=== PATIENT | female | born 1935 | race Caucasian/White ===

== ENCOUNTER 2021-08-01 06:41 | Inpatient (IN) | payer MEDICARE, MEDICAID ==
[~2021-08-01] VITALS: Ht 152.4 cm; Wt 45.8 kg
[~2021-08-01 06:41] MED LIST: AMLO10TA80 MT; AMLO5TAB88 MT; ASPI-1406 MT; ASPI-1497 MT; CLON0.1T PO; CYAN50003 MT; DOCU-138 MT; EZET10TA13 MT; LISI-650 PO; VIT1TABL77 MT
[2021-08-01] MEDS ORDERED: MOM PO (09:50)
[2021-08-01] MEDS ORDERED: LIDOCAINE PATCH TD (09:50)
[2021-08-01] MEDS ORDERED: OXYC1TAB5 PO (09:50)
[2021-08-01] MEDS ORDERED: DIPH25TA62 MT (09:50)
[2021-08-01] MEDS ORDERED: MAG30ORA12 PO (09:50)
[2021-08-01] MEDS ORDERED: DULO30CA52 PO (09:50)
[2021-08-01] MEDS ORDERED: ACET-2708 MT (09:53)
[2021-08-01] MEDS ORDERED: TOPUD PO (09:53)
[2021-08-01] MEDS ORDERED: ZOLP5TAB8 PO (09:53)
[2021-08-01 12:00] VITALS: BP 145/67
[2021-08-01 12:55] LABS: BASOPHILS % 0.6 % (0.0-2.0); HEMATOCRIT. 36.7 % (36.0-48.0); HEMOGLOBIN. 12.2 g/dL (12.0-16.0); MEAN CORPUSCULAR HEMOGLOBIN 30.2 pg (28.0-32.0); MEAN CORPUSCULAR VOLUME 91.1 fL (81.0-99.0); MEAN PLATELET VOLUME 7.3 fl (7.4-10.4); MONOCYTES % 5.7 % (2.0-8.0); NEUTROPHILS % 79.7 % (40.0-76.0); PLATELET 286 x1000/uL (130-400); RED BLOOD CELL COUNT 4.03 mill/uL (4.2-5.4); RED CELL DISTRIBUTION WIDTH 14.8 % (11.6-14.6)
[2021-08-01 13:22] LABS: CHLORIDE 111 mEq/L (98-107)
[2021-08-01 14:27] VITALS: BP 145/67
[2021-08-01] MEDS ORDERED: PERMETHRIN 5% CREAM 60GM TOP NR (14:30)
[2021-08-01 15:53] LABS: CLARITY URINE TURBID (CLEAR); COLOR URINE YELLOW (YELLOW); KETONES URINE NEGATIVE (NEGATIVE); LEUKOCYTE ESTERASE URINE 3+ (NEGATIVE); NITRITE URINE POSITIVE (NEGATIVE); OCCULT BLOOD URINE NEGATIVE (NEGATIVE); PROTEIN URINE TRACE (NEGATIVE)
[2021-08-01 16:00] VITALS: BP 130/68
[2021-08-01] MEDS ORDERED: DIPHENHYDRAMINE 25MG CAPSULE PO PRN (17:15)
[2021-08-01] MEDS: HYDROCODONE/ACETAMINOPHEN 5/325MG TABLET PO PRN (17:18)
[2021-08-01] MEDS ORDERED: HYDR-4001 MT (17:32)
[2021-08-01 17:47] VITALS: BP 145/67
[2021-08-01 20:00] VITALS: BP 145/59
[2021-08-01] MEDS ORDERED: NALOXONE HCL 0.4MG/ML VIAL IV PRN (23:15)
[2021-08-02] VITALS: BP 140/58
[2021-08-02] MEDS: HYDROCODONE/ACETAMINOPHEN 5/325MG TABLET PO PRN (01:42)
[2021-08-02 04:00] VITALS: BP 152/51
[2021-08-02 08:00] VITALS: BP 142/58
[2021-08-02] MEDS: AMLODIPINE 10MG TABLET PO SCH (09:07)
[2021-08-02] MEDS: LEVOFLOXACIN 500MG TABLET PO SCH (11:25)
[2021-08-02 12:00] VITALS: BP 146/62
[2021-08-02 16:00] VITALS: BP 140/65
[2021-08-02 20:00] VITALS: BP 145/63
[2021-08-02] MEDS: ZOLPIDEM TARTRATE 5MG TABLET PO PRN (21:20)
[2021-08-03 04:00] VITALS: BP 118/54
[2021-08-03 08:00] VITALS: BP 152/59
[2021-08-03] MEDS: AMLODIPINE 10MG TABLET PO SCH (10:03)
[2021-08-03] MEDS: LEVOFLOXACIN 500MG TABLET PO SCH (10:07)
[2021-08-03 12:00] VITALS: BP 138/78
[2021-08-03 16:00] VITALS: BP 126/55
[2021-08-03 20:00] VITALS: BP 136/61
[2021-08-03] MEDS: ZOLPIDEM TARTRATE 5MG TABLET PO PRN (21:31)
[2021-08-03] MEDS: HYDROCODONE/ACETAMINOPHEN 5/325MG TABLET PO PRN (22:26)
[2021-08-04] VITALS: BP 108/66
[2021-08-04 04:00] VITALS: BP 134/62
[2021-08-04 08:00] VITALS: BP 127/63
[2021-08-04 09:02] LABS: BASOPHILS % 0.7 % (0.0-2.0); EOSINOPHILS % 1.4 % (0.0-5.0); HEMATOCRIT. 34.5 % (36.0-48.0); HEMOGLOBIN. 11.8 g/dL (12.0-16.0); LYMPHOCYTES % 20.4 % (20.0-50.0); MEAN CORPUSCULAR HEMOGLOBIN 30.7 pg (28.0-32.0); MEAN CORPUSCULAR VOLUME 89.6 fL (81.0-99.0); MEAN PLATELET VOLUME 7.3 fl (7.4-10.4); MONOCYTES % 9.1 % (2.0-8.0); NEUTROPHILS % 68.4 % (40.0-76.0); PLATELET 278 x1000/uL (130-400); RED BLOOD CELL COUNT 3.86 mill/uL (4.2-5.4); RED CELL DISTRIBUTION WIDTH 14.5 % (11.6-14.6)
[2021-08-04 09:14] LABS: CHLORIDE 113 mEq/L (98-107)
[2021-08-04] MEDS: LEVOFLOXACIN 500MG TABLET PO SCH (09:23)
[2021-08-04] MEDS: AMLODIPINE 10MG TABLET PO SCH (09:23)
[2021-08-04] MEDS: HYDROCODONE/ACETAMINOPHEN 5/325MG TABLET PO PRN ×2 (09:23→23:31)
[2021-08-04] MEDS ORDERED: IVERMECTIN 3 MG TABLET PO SCH (11:00)
[2021-08-04 12:00] VITALS: BP 122/55
[2021-08-04] MEDS: POTASSIUM CHLORIDE 20MEQ/PACKET PO SCH ×2 (13:51→17:07)
[2021-08-04 16:00] VITALS: BP 130/60
[2021-08-04 16:30] LABS: CHLORIDE 112 mEq/L (98-107)
[2021-08-04 20:00] VITALS: BP 132/56
[2021-08-04] MEDS: ZOLPIDEM TARTRATE 5MG TABLET PO PRN (23:30)
[2021-08-05] VITALS: BP 121/62
[2021-08-05 04:00] VITALS: BP 129/59
[2021-08-05 08:00] VITALS: BP 149/65
[2021-08-05] MEDS: HYDROCODONE/ACETAMINOPHEN 5/325MG TABLET PO PRN (08:22)
[2021-08-05] MEDS: AMLODIPINE 10MG TABLET PO SCH (09:07)
[2021-08-05] MEDS: LEVOFLOXACIN 500MG TABLET PO SCH (10:48)
[2021-08-05] MEDS ORDERED: ONDANSETRON HCL 4MG/2ML INJ IV NR (13:45)
[2021-08-05] MEDS ORDERED: NA PHOS,M-B/NA PHOS,DI-BA ENEMA 118ML PR SCH (14:15)
[2021-08-05] MEDS ORDERED: BISACODYL 10MG SUPP PR SCH (14:15)
[2021-08-05 15:04] VITALS: BP 149/65
== END 2021-08-05 15:39 | DRG 690 ==
LOC: 6EST 06:41
PROVIDERS: ADMIT Family Medicine; ATTEND Family Medicine
DX: N39.0 Urinary tract infection, site not specified (principal); E44.0 Moderate protein-calorie malnutrition; Z68.1 Body mass index [BMI] 19.9 or less, adult; H54.8 Legal blindness, as defined in USA; I10 Essential (primary) hypertension; G89.29 Other chronic pain; B86 Scabies; Z20.822 Contact with and (suspected) exposure to COVID-19; K21.9 Gastro-esophageal reflux disease without esophagitis; Z85.41 Personal history of malignant neoplasm of cervix uteri; Z90.710 Acquired absence of both cervix and uterus; Z79.899 Other long term (current) drug therapy; Z88.0 Allergy status to penicillin; R53.1 Weakness; E87.6 Hypokalemia
CPT/HCPCS: 36415; 71045; 80048; 80053; 81003; 85025; 87426; 97162; 97165; C1893; J2405; Q0163